=== PATIENT | male | born 1955 | race Caucasian/White ===

== ENCOUNTER 2021-09-07 07:38 | Outpatient (CLI) | payer BC ==
[2021-09-07 09:10] LABS: Hemoglobin 14.1 g/dL (13.5-17.5); Mean Corpuscular HGB CONC 34.2 g/dL (32.0-36.0); Mean Corpuscular Volume 87.7 fl (81.2-95.1); Mean Platelet Volume 9.5 fl (7.4-10.4); Platelet Count 303 10x3/uL (150-450)
[2021-09-07 09:22] LABS: INR-International Normal Ratio 0.9; PTT 27.9 sec (22.0-33.0); Prothrombin Time 9.8 sec (9.5-12.1)
[2021-09-07 09:23] LABS: Anion Gap 14 mmol/L (10-20); BUN (Urea Nitrogen) 14 mg/dL (8.4-25.7); Calc. Creatinine Clearance 0 mL/min (70-130); Carbon Dioxide 25 mmol/L (23-31); Chloride 105 mmol/L (98-107); Estimated GFR 100; Glucose 100 mg/dL (80-115); Potassium 4.5 mmol/L (3.5-5.1); Sodium 139 mmol/L (136-145)
== END 2021-09-07 07:39 | disposition home or self-care (01) ==
LOC: LABBT 07:38
PROVIDERS: ATTEND Internal Medicine Cardiovascular Disease
DX: Z01.812 Encounter for preprocedural laboratory examination (principal); Z51.81 Encounter for therapeutic drug level monitoring; I48.0 Paroxysmal atrial fibrillation; I48.92 Unspecified atrial flutter; I51.9 Heart disease, unspecified; Z79.01 Long term (current) use of anticoagulants
CPT/HCPCS: 80048; 85027; 85610; 85730

== ENCOUNTER 2021-09-12 09:32 | Day surgery (SDC) | payer BC ==
[2021-09-07 14:53] VITALS: BMI 27.6
[2021-09-12] MEDS ORDERED: Heparin 10,000 UNITS/ 10 ML VIAL ONE ×2 (10:11→14:25)
[2021-09-12] MEDS ORDERED: Protamine Sulfate 50 MG/5 ML VIAL ONE (10:11)
[2021-09-12] MEDS ORDERED: Isoproterenol 0.2 MG/1 ML AMP ONE (10:12)
[2021-09-12] MEDS ORDERED: Fentanyl 100 MCG/2 ML VIAL ONE ×2 (12:41→16:10)
[2021-09-12] MEDS ORDERED: Phenylephrine 10 MG/ML VIAL ONE (12:43)
[2021-09-12] MEDS ORDERED: diphenhydrAMINE 50 MG/ML VIAL ONE (12:50)
[2021-09-12] MEDS ORDERED: Rocuronium Bromide 10 MG/ML (10ML VIAL) ONE (12:50)
[2021-09-12] MEDS ORDERED: Ondansetron PF 4 MG/2 ML Vial ONE (12:50)
[2021-09-12] MEDS ORDERED: Dexamethasone 20 MG/5 ML VIAL ONE (12:50)
[2021-09-12] MEDS ORDERED: PROPOFOL 200 MG/20 ML VIAL ONE (12:50)
[2021-09-12] MEDS ORDERED: ePHEDrine 50 MG/ML VIAL ONE (12:50)
[2021-09-12] MEDS ORDERED: HYDROmorphone 2 MG/ML VIAL ONE (13:01)
[2021-09-12] MEDS ORDERED: Heparin 25,000 units/D5W 500 ML ONE (13:32)
[2021-09-12] MEDS ORDERED: Potassium Chloride 20 MEQ TAB PO PRN (15:44)
[2021-09-12] MEDS ORDERED: Furosemide 40 MG TAB PO PRN (15:44)
[2021-09-12] MEDS ORDERED: Sucralfate 1 GM TAB PO SCH (17:00)
[2021-09-12] MEDS ORDERED: Ketorolac Tromethamine 30 MG/ML VIAL ONE (17:30)
== END 2021-09-12 19:40 | disposition home or self-care (01) ==
LOC: SDC 09:32
PROVIDERS: ATTEND Internal Medicine Cardiovascular Disease
PROC: 02583ZZ Destruction of Conduction Mechanism, Percutaneous Approach (ICD-10-PCS; principal; 2021-09-12)
PROC: 02K83ZZ Map Conduction Mechanism, Percutaneous Approach (ICD-10-PCS; principal; 2021-09-12)
PROC: 4A0234Z Measurement of Cardiac Electrical Activity, Percutaneous Approach (ICD-10-PCS; principal; 2021-09-12)
PROC: B244ZZ3 Ultrasonography of Right Heart, Intravascular (ICD-10-PCS; principal; 2021-09-12)
PROC: 4A023FZ Measurement of Cardiac Rhythm, Percutaneous Approach (ICD-10-PCS; principal; 2021-09-12)
DX: I48.92 Unspecified atrial flutter (principal); I48.0 Paroxysmal atrial fibrillation; I25.10 Atherosclerotic heart disease of native coronary artery without angina pectoris; N40.0 Benign prostatic hyperplasia without lower urinary tract symptoms; I10 Essential (primary) hypertension; E78.00 Pure hypercholesterolemia, unspecified; Z86.73 Personal history of transient ischemic attack (TIA), and cerebral infarction without residual deficits; Z86.718 Personal history of other venous thrombosis and embolism; Z87.891 Personal history of nicotine dependence; Z79.01 Long term (current) use of anticoagulants; Z79.4 Long term (current) use of insulin; Z79.82 Long term (current) use of aspirin; Z79.84 Long term (current) use of oral hypoglycemic drugs; Z79.899 Other long term (current) drug therapy; Z88.8 Allergy status to other drugs, medicaments and biological substances; Z95.1 Presence of aortocoronary bypass graft; Z98.890 Other specified postprocedural states
CPT/HCPCS: 36416; 85347; 93005; 93010; 93613; 93622; 93623; 93656; 93657; 93662; C1732; C1760; C1769; C1884; J1100; J1170; J1200; J1644; J1885; J2370; J2405; J2704; J2720; J3010; J3490